=== PATIENT | male | born 2005 | race Caucasian/White ===

== ENCOUNTER 2023-01-03 17:25 | Emergency (ER) | payer OTHER, SELFPAY ==
[2023-01-03 17:38] VITALS: BP 143/78; PULSE 89; RESP 20; TEMP 37.6; O2SAT 99; BMI 19.0
[2023-01-03] MEDS: LORazepam 1 MG TABLET PO (18:13)
--- NOTE | 2023-01-03 18:31 | ED_ITS ---
HPI - General Adult General Chief complaint: Shortness of Breath/Dyspnea Stated complaint: Chest Tightness Short of Breath Time Seen by Provider: 01/03/23 17:46 History of Present Illness HPI narrative: 17-year-old young man presenting to the emergency department with concern of chest pains and feelings of palpitations since THC ingestion a week and half ago. Around that time began to feel some of the symptoms and as this escalated checked in with his mother for some reassurance she felt he was having a panic attack and helped calm him at that time. Mom is a clinical manager social services. These symptoms have continued though over the last week and half. He does not report pleuritic pain necessary early. He has not had any fever. No cough cold symptoms. He does run for exercise actually having run about 4 days ago and did not feel any of these palpitations or any unusual exercise intolerance. Is not feeling lightheaded. He wakes generally asymptomatic and these feelings develop over the course of the day. Checked in with health advisor/ems/triage line who recommend be be seen in the emergency department. This was only the 3rd time of using THC. He likes the way it makes him feel. Does admit to having underlying anxiety diagnosis but does not medicate this otherwise. Otherwise has only used marijuana once. College student here in town from [employer] [facility]. There is no family history of arrhythmia/dysrhythmias, sudden cardiac , cardiomyopathy. Related Data Allergies Allergy/AdvReac Type Severity Reaction Status Date / Time No Known Drug Allergies Allergy Verified 01/03/23 17:42 Review of Systems Status of ROS: Reports: 6 or more systems reviewed and unremarkable except as noted in History and below [facility] Social History service: No Exam Narrative: Exam Narrative: Pleasant. Calm. NAD. Breathing easily. Cranial nerves 2-12 intact moving all extremities without difficulty. Looks well perfused. Lungs are clear. Heart in regular rate and rhythm without murmur rub or gallop. There is no supraclavicular crepitus. Thin torso/chest wall. No reproducible pain to palpation. No rash is apparent. Const: Vital Signs, click to edit/add: Vital Signs - 24 hr 01/03/23 17:38 Temperature 99.7 F H Pulse Rate [Pulse Oximeter] 89 Respiratory Rate 20 Blood Pressure [Ri ght Upper Arm] 143/78 H Pulse Oximetry 99 Oxygen Delivery Me thod Room Air Documenting provider has reviewed patient's vital signs: yes Course Vital Signs Vital signs: Initial Vital Signs Temperature 99.7 F H 01/03/23 17:38 Temperature Source Temporal Artery Scan 01/03/23 17:38 Pulse Rate 89 01/03/23 17:38 Respiratory Rate 20 01/03/23 17:38 Blood Pressure 143/78 H 01/03/23 17:38 Blood Pressure Mean 99 01/03/23 17:38 Blood Pressure Position Sitting 01/03/23 17:38 Pulse Oximetry 99 01/03/23 17:38 Oxygen Delivery Method Room Air 01/03/23 17:38 Vital Signs Temperature 99.7 F H 01/03/23 17:38 Pulse Rate 89 01/03/23 17:38 Respiratory Rate 20 01/03/23 17:38 Blood Pressure 143/78 H 01/03/23 17:38 Pulse Oximetry 99 01/03/23 17:38 Oxygen Delivery Method Room Air 01/03/23 17:38 Temperature 99.7 F H 01/03/23 17:38 Pulse Rate 89 01/03/23 17:38 Respiratory Rate 20 01/03/23 17:38 Blood Pressure 143/78 H 01/03/23 17:38 Pulse Oximetry 99 01/03/23 17:38 Oxygen Delivery Method Room Air 01/03/23 17:38 Medical Decision Making MDM Narrative Medical decision making narrative: EKGs been obtained read as below prior to my seeing Bucky. It seems there is some baseline irritability associated with some tension or stress. He seems quite insightful. Reassured that symptoms resolve with out exercise intolerance while running and also apparently absent in the mornings. I suspect anxiety is primary component here. Pneumothorax or pneumomediastinum also in differential but again little inconsistent with history. Doubtful ischemic heart disease at this point. Senna could be underlying cardiomyopathy but no family history of this. No demonstration of arrhythmia or tachycardia here today. Does not appear to be of infectious etiology. I suspect more of a smoldering anxiety, in part brought on by experience with THC ingestion. Discussed running cardiac labs and EKG. Also rhythm monitoring outpatient. I think this can be deferred at this time. He would prefer to do that. Does have follow-up scheduled in clinic tomorrow. I think this is appropriate. Offered one dosing of lorazepam here in the ER and is already late afternoon/evening. See patient discharge plan ECG Data Attestation: I personally reviewed and interpreted this ECG as follows: (Normal sinus rate of 86. No acute ischemic changes. Question of some mild left atrial enlargement. This along with elevated QRS complex not inconsistent I think with body habitus. Otherwise Otherwise mild baseline irritability.) Discharge Plan Discharge Clinical Impression: Anxiety, Atypical chest pain Patient Disposition: Home, Self-Care Condition: Stable Instructions: Anxiety (ED) Additional Instructions: Yes. I do think that some smoldering anxiety could be contributing to all of your symptoms. The differential otherwise as discussed I think is unlikely, certainly not a good story for ischemic heart disease, and overall the clinical picture and history is generally reassuring. Your EKG looks okay as well. I would follow-up tomorrow as scheduled to establish primary care if this continues to be a problem. Hopefully you can have a good night sleep tonight and feel better tomorrow. Activity Level: No Restrictions Discharge Diet: Regular Stand Alone Forms: [employer] Info Instructions Discharge Comment: pt eloped before discharge paperwork was given and signed.
== END 2023-01-03 18:31 | disposition home or self-care (01) ==
LOC: ED 18:13
PROVIDERS: Emergency Provider Family Medicine; PCP Family Medicine
DX: R07.89 Other chest pain (principal); F41.9 Anxiety disorder, unspecified
CPT/HCPCS: 99283; 99284; A9270